=== PATIENT | female | born 1940 | race Caucasian/White ===

== ENCOUNTER 2016-10-16 09:28 | Emergency (ER) | payer MEDICARE, OTHER ==
[2016-10-16] MEDS ORDERED: DEXAMETHASONE 10 MG/ML VIAL PO STA (11:55)
[2016-10-16] MEDS ORDERED: cefTRIAXone 1 GM VIAL IM STA (11:55)
[2016-10-16] MEDS ORDERED: IPRATROPIUM/ALBUTEROL 3 ML NEB INH STA (11:55)
[2016-10-16] MEDS ORDERED: IPRATROPIUM/ALBUTEROL 3 ML NEB INH ONE (12:08)
[2016-10-16] MEDS ORDERED: LIDOCAINE-MPF 1% 5 ML VIAL ONE (12:17)
[2016-10-16] MEDS ORDERED: cefTRIAXone 1 GM VIAL ONE (12:17)
[2016-10-16] MEDS ORDERED: DEXAMETHASONE 10 MG/ML VIAL ONE (12:18)
== END 2016-10-16 13:33 | disposition home or self-care (01) ==
DX: T17.590A Other foreign object in bronchus causing asphyxiation, initial encounter (principal); H66.001 Acute suppurative otitis media without spontaneous rupture of ear drum, right ear; G12.21 Amyotrophic lateral sclerosis; E11.42 Type 2 diabetes mellitus with diabetic polyneuropathy
CPT/HCPCS: 71020; 87275; 87276; 94640; 96372; 99283; 99284; J7620

== ENCOUNTER 2016-12-05 10:25 | Outpatient (CLI) | payer MEDICARE, OTHER | END 2016-12-05 10:26 | disposition home or self-care (01) | DX: R39.15 Urgency of urination (principal) ==

== ENCOUNTER 2016-12-12 10:02 | Outpatient (CLI) | payer MEDICARE, OTHER | END 2016-12-12 10:03 | disposition home or self-care (01) | DX: R39.15 Urgency of urination (principal) ==

== ENCOUNTER 2017-01-11 10:35 | Observation (INO) | payer MEDICARE, OTHER ==
[2017-01-11] MEDS ORDERED: IOPAMIDOL-300 100 ML VIAL IVP ONE (15:52)
[2017-01-11] MEDS ORDERED: SODIUM CHLORIDE FLUSH 0.9% 10 ML SYRINGE IVP PRN (19:55)
[2017-01-11] MEDS: SODIUM CHLORIDE FLUSH 0.9% 10 ML SYRINGE IVP SCH (21:22)
[2017-01-11] MEDS ORDERED: ALPRAZolam 0.25 MG TABLET PO PRN (22:38)
[2017-01-12] MEDS: SODIUM CHLORIDE FLUSH 0.9% 10 ML SYRINGE IVP SCH (06:46)
[2017-01-12] MEDS ORDERED: ACETAMINOPHEN 325 MG TABLET PO PRN (07:42)
[2017-01-12] MEDS ORDERED: POLYETHYLENE GLYCOL 3350 17 GM PACKET PO SCH (09:00)
[2017-01-12] MEDS ORDERED: ALPRAZOLAM 0.5 MG PO SCH (09:00)
[2017-01-12] MEDS ORDERED: CITALOPRAM 10 MG TABLET PO SCH ×2 (09:00→12:00)
[2017-01-12] MEDS ORDERED: ALPRAZolam 0.25 MG TABLET PO SCH (09:00)
[2017-01-12] MEDS ORDERED: OXYBUTYNIN 5MG TABLET PO PRN (11:16)
[2017-01-12] MEDS ORDERED: PANTOPRAZOLE 40 MG TABLET PO SCH (12:00)
[2017-01-12] MEDS ORDERED: ESTRADIOL 1 MG TABLET PO SCH (12:00)
[2017-01-12] MEDS ORDERED: PRAMIPEXOLE 0.25 MG TABLET PO SCH (20:00)
== END 2017-01-12 11:06 | disposition home or self-care (01) ==
DX: R09.02 Hypoxemia (principal); G12.21 Amyotrophic lateral sclerosis; E11.42 Type 2 diabetes mellitus with diabetic polyneuropathy; J98.4 Other disorders of lung; Z99.81 Dependence on supplemental oxygen; R60.0 Localized edema; R03.0 Elevated blood-pressure reading, without diagnosis of hypertension; K21.9 Gastro-esophageal reflux disease without esophagitis; F31.9 Bipolar disorder, unspecified; F41.0 Panic disorder [episodic paroxysmal anxiety]; Z87.01 Personal history of pneumonia (recurrent)
CPT/HCPCS: 36415; 71020; 71275; 80048; 84484; 85025; 85379; 99284; A9270; G0378; Q9967

== ENCOUNTER 2017-01-27 20:20 | Outpatient (CLI) | payer MEDICARE, OTHER | END 2017-01-27 20:21 | disposition critical access hospital (66) | DX: R10.9 Unspecified abdominal pain (principal); R55 Syncope and collapse | CPT/HCPCS: A0425; A0427 ==

== ENCOUNTER 2017-01-27 20:32 | Emergency (ER) | payer MEDICARE, OTHER ==
--- NOTE | 2017-01-27 20:38 | ED Physician Documentation ---
History of Present Illness - Stated complaint Stated Complaint: ALS/NEAR SYNCOPE - Chief complaint Chief Complaint: General - History obtained from History obtained from: Patient - History of Present Illness Timing: Today Pain level max: 0 Pain level now: 0 Improved by: no ameliorating factors Worsened by: no exacerbating factors - Additonal information Additional information: patient feels she has been constipated x few days, took laxative 4 days ago without results. She took another laxative tonight and subsequently went to use toilet for BM. She had no output, and quickly experienced generalized abdominal cramping, nausea (no vomiting), lightheadedness, diaphoresis, cold chills, " felt like I was going to pass out" (per patient). She has gradually but completely returned to baseline. She also has left knee pain x 3 days, sudden onset when family was adjusting her in her bed (she has ALS). Review of Systems Constitutional: reports: Chills, Sweats. denies: Fever Cardiac: reports: Reviewed and negative Respiratory: reports: Reviewed and negative GI: reports: Nausea, Constipation. denies: Abdominal Pain, Vomiting, Diarrhea : denies: Dysuria, Frequency Neurologic: reports: Generalized weakness (baseline), Near syncope. denies: Focal weakness, Numbness, Headache PD PAST MEDICAL HISTORY - Past Medical History Cardiovascular: Other Respiratory: Pneumonia Neuro: Peripheral neuropathy Endocrine/Autoimmune: Type 2 diabetes GI: GERD : Kidney stones HEENT: None Psych: Depression, Anxiety Musculoskeletal: Osteoarthritis, Chronic back pain Derm: None - Past Surgical History General: Colonoscopy Ortho: Other /TELLERS SUPERVISOR: Hysterectomy HEENT: Tonsil/Adenoidectomy - Present Medications Home Medications: Ambulatory Orders Medication Instructions Recorded Confirmed Citalopram [CeleXA] 40 mg PO DAILY 10/31/14 01/27/17 Alprazolam [Xanax] 0.5 mg PO DAILY PRN 10/16/16 01/11/17 Estradiol 0.5 mg PO DAILY 01/12/17 01/27/17 Omeprazole 20 mg PO QDAC 01/12/17 01/27/17 Oxybutynin [Ditropan] 5 mg PO TID PRN 01/12/17 01/27/17 Pramipexole Di-HCl [Mirapex] 0.25 mg PO QPM@199901/12/17 01/27/17 Glycopyrrolate 01/27/17 - Allergies Allergies/Adverse Reactions: Allergies Allergy/AdvReac Type Severity Reaction Status Date / Time propoxyphene HCl * Allergy Severe Upper lip Verified 01/11/17 10:58 [From Darvon] swelling meperidine HCl * AdvReac Severe Nausea Verified 01/11/17 10:58 [From Demerol] morphine AdvReac Severe Nausea Verified 01/11/17 10:58 Sulfa (Sulfonamide AdvReac Intermediate Rash Verified 01/11/17 10:58 Antibiotics) - Social History Does the pt smoke?: No Smoking Status: Former smoker PD ED PE NORMAL - Vitals Vital signs reviewed: Yes - General General: Alert and oriented X 3, No acute distress, Well developed/nourished - HEENT HEENT: PERRL, EOMI, Moist mucous membranes, Pharynx benign - Neck Neck: Supple, no meningeal sign - Cardiac Cardiac: RRR (occasional extra beats), No murmur - Respiratory Respiratory: No respiratory distress, Clear bilaterally - Abdomen Abdomen: Normal bowel sounds, Soft, Non tender - Derm Derm: Normal color, Warm and dry - Extremities Extremities: No edema Results - Vitals Vitals: Vital Signs - 24 hr 01/27/17 01/27/17 01/27/17 20:36 21:57 22:45 Temperature 36.9 C 36.6 C Heart Rate 79 78 79 Respiratory 18 18 Rate Blood Pressure 152/68 H 140/80 H 133/60 H O2 Saturation 98 98 97 Oxygen O2 Source Room air - EKG (time done) No standard instances Rate: Rate (enter#) (74) Rhythm: NSR [place]: LAD Intervals: Normal [place] QRS: Normal Ischemia: Q waves (II, III, aVF, V2-V5) - Labs Labs: Laboratory Tests 01/27/17 01/27/17 01/27/17 21:17 21:17 21:17 WBC 10.8 RBC 4.33 Hgb 13.3 Hct 39.7 MCV 91.6 MCH 30.7 MCHC 33.5 RDW 13.0 Plt Count 277 MPV 10.5 Neut # 8.8 H Lymph # 1.2 L [place] # 0.6 Eos # 0.2 Baso # 0.0 Absolute Nucleated RBC 0.00 Nucleated RBCs 0.0 Sodium 139 Potassium 3.4 L Chloride 101 Carbon Dioxide 28 Anion Gap 10.0 BUN 18 Creatinine 0.4 Estimated GFR (MDRD) 155 Glucose 134 H Calcium 9.4 Total Bilirubin 0.7 AST 19 ALT 16 Alkaline Phosphatase 45 Troponin I < 0.04 Total Protein 6.7 Albumin 4.1 Globulin 2.6 Albumin/Globulin Ratio 1.6 Lipase 41 - Rads (name of study) right knee xrays Radiology: Prelim report reviewed, See rad report PD MEDICAL DECISION MAKING - ED course Complexity details: reviewed results, re-evaluated patient, considered differential, d/w patient Departure - Departure Disposition: 01 Home, Self Care Clinical Impression: ALS (amyotrophic lateral sclerosis), Near syncope Condition: Good Instructions: ED Near Syncope Unkn Follow-Up: Bari Stevenson DO [Primary Care Provider] - Discharge Date/Time: 01/27/17 22:45
[2017-01-27] MEDS ORDERED: SODIUM CHLORIDE 0.9% 1,000 ML IV STA (21:00)
[2017-01-27 21:31] LABS: BASOPHILS % (AUTO) 0.4 %; EOSINOPHILS # (AUTO) 0.2 10^3/uL (0.0-0.7); EOSINOPHILS % (AUTO) 1.5 %; HCT - HEMATOCRIT 39.7 % (37.0-47.0); HGB - HEMOGLOBIN 13.3 g/dL (12.0-16.0); LYMPHOCYTES # (AUTO) 1.2 10^3/uL (1.5-3.5); LYMPHOCYTES % (AUTO) 11.4 %; MEAN CORPUSCULAR HEMOGLOBIN 30.7 pg (27.0-31.0); MEAN CORPUSCULAR HGB CONC 33.5 g/dL (32.0-36.0); MEAN CORPUSCULAR VOLUME 91.6 fL (81.0-99.0); MEAN PLATELET VOLUME 10.5 fL (7.9-10.8); MONOCYTES # (AUTO) 0.6 10^3/uL (0.0-1.0); MONOCYTES % (AUTO) 5.2 %; NEUTROPHILS # (AUTO) 8.8 10^3/uL (1.5-6.6); NEUTROPHILS % (AUTO) 81.5 %; RED BLOOD COUNT 4.33 10^6/uL (4.20-5.40); UNCORRECTED WHITE BLOOD COUNT 10.8 x10^3/uL; WHITE BLOOD COUNT 10.8 x10^3/uL (4.8-10.8)
[2017-01-27 21:37] LABS: ALBUMIN/GLOBULIN RATIO 1.6 (1.0-2.2); BILIRUBIN,TOTAL 0.7 mg/dL (0.2-1.0); CALCIUM 9.4 mg/dL (8.5-10.3); CREATININE 0.4 mg/dL (0.4-1.0); POTASSIUM 3.4 mmol/L (3.5-5.0); TOTAL PROTEIN 6.7 g/dL (6.7-8.2)
--- NOTE | 2017-01-27 21:37 | XRAY Preliminary Report ---
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 [facility] SITE ID: [id number]
--- NOTE | 2017-01-27 21:40 | XRAY Report ---
EXAM: RIGHT KNEE RADIOGRAPHY EXAM DATE: 01/27/2017 09:31 PM. CLINICAL HISTORY: Twisting injury, pain. COMPARISON: None. TECHNIQUE: 3 views. FINDINGS: Bones: Normal. No fractures or bone lesions. Joints: Joint space and alignment appears preserved. There is chondrocalcinosis within the knee. Ther e is no joint effusion. Soft Tissues: Normal. No soft tissue swelling. 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 [facility] Referring Provider Line: [phone] SITE ID: [id number]
[2017-01-27 22:54] VITALS: BP 133/60
--- NOTE | 2017-03-13 06:45 | ED Physician Documentation ---
ED Addendum - Addendum Addendum: 03/13/17 06:44 HPI should read "She also has right knee pain x 3 days", not left knee pain
== END 2017-01-27 22:45 | disposition home or self-care (01) ==
LOC: EDUNIT# → SUPCPDRO 20:32 → ED 20:32
DX: G12.21 Amyotrophic lateral sclerosis (principal); R55 Syncope and collapse; M25.561 Pain in right knee; E11.42 Type 2 diabetes mellitus with diabetic polyneuropathy; K21.9 Gastro-esophageal reflux disease without esophagitis; Z87.891 Personal history of nicotine dependence
CPT/HCPCS: 36415; 80053; 83690; 84484; 85025; 93005; 93010; 99284

== ENCOUNTER 2017-02-21 21:33 | Outpatient (CLI) | payer MEDICARE, OTHER | END 2017-02-21 21:34 | disposition critical access hospital (66) | LOC: EMS 21:33 | PROVIDERS: ATTEND Surgery | DX: R11.2 Nausea with vomiting, unspecified (principal); R53.1 Weakness | CPT/HCPCS: A0425; A0427 ==

== ENCOUNTER 2017-02-21 21:42 | Emergency (ER) | payer MEDICARE, OTHER ==
[2017-02-21] MEDS ORDERED: ONDANSETRON 4 MG/2 ML VIAL IVP STA (22:16)
[2017-02-21] MEDS ORDERED: SODIUM CHLORIDE 0.9% 1,000 ML IV ONE (22:16)
[2017-02-21] MEDS ORDERED: DIATR MEGLU/DIATRIZOATE SODIUM 120 ML BOTTLE PO ONE (22:18)
[2017-02-21] MEDS ORDERED: ONDANSETRON 4 MG/2 ML VIAL ONE (22:30)
[2017-02-21 22:44] LABS: BASOPHILS # (AUTO) 0.1 10^3/uL (0.0-0.1); BASOPHILS % (AUTO) 0.6 %; EOSINOPHILS # (AUTO) 0.1 10^3/uL (0.0-0.7); EOSINOPHILS % (AUTO) 0.7 %; HCT - HEMATOCRIT 41.5 % (37.0-47.0); HGB - HEMOGLOBIN 13.7 g/dL (12.0-16.0); LYMPHOCYTES # (AUTO) 1.3 10^3/uL (1.5-3.5); LYMPHOCYTES % (AUTO) 14.5 %; MEAN CORPUSCULAR HEMOGLOBIN 30.3 pg (27.0-31.0); MEAN CORPUSCULAR HGB CONC 33.1 g/dL (32.0-36.0); MEAN CORPUSCULAR VOLUME 91.6 fL (81.0-99.0); MEAN PLATELET VOLUME 10.4 fL (7.9-10.8); MONOCYTES # (AUTO) 0.4 10^3/uL (0.0-1.0); MONOCYTES % (AUTO) 4.4 %; NEUTROPHILS # (AUTO) 7.2 10^3/uL (1.5-6.6); NEUTROPHILS % (AUTO) 79.8 %; RED BLOOD COUNT 4.53 10^6/uL (4.20-5.40)
[2017-02-21 22:58] LABS: ALBUMIN/GLOBULIN RATIO 1.6 (1.0-2.2); BILIRUBIN,TOTAL 1.7 mg/dL (0.2-1.0); CREATININE 0.4 mg/dL (0.4-1.0); MAGNESIUM 1.6 mg/dL (1.7-2.8); PHOSPHORUS 4.2 mg/dL (2.5-4.6); POTASSIUM 3.8 mmol/L (3.5-5.0); TOTAL PROTEIN 7.2 g/dL (6.7-8.2)
[2017-02-22] MEDS ORDERED: PROMETHAZINE 12.5 MG SUPP PR STA ×2 (00:50→03:13)
--- NOTE | 2017-02-22 00:58 | ED Physician Documentation ---
History of Present Illness - Stated complaint Stated Complaint: N/V - Chief complaint Chief Complaint: Abd Pain - History obtained from History obtained from: Patient, Family - History of Present Illness Timing: Chronic - Additonal information Additional information: Patient is a 76 year old female with a history of als who is presenting to the emergency department for abdominal pain, nausea, weakness, constipaion. According to patient and family the symptoms of her als have been progressing. patient had a peg tube placed on and was discharged from the hospital two days later. Family and patient report that she has not felt well the entire time. she has not had a substantial bowel movement and patient has been nauseated. Patient has not been able to tolerate her tube feedings, and has been complaining of generalized weakness. Review of Systems Constitutional: denies: Fever, Chills Eyes: denies: Loss of vision, Photophobia Ears: denies: Ear pain, Drainage/discharge Nose: denies: Rhinorrhea / runny nose, Congestion Throat: denies: Dental pain / toothache, Oral lesions / sores Cardiac: denies: Chest pain / pressure, Palpitations Respiratory: reports: Dyspnea, Cough GI: reports: Abdominal Pain, Nausea, Constipation. denies: Vomiting : denies: Dysuria, Frequency, Unable to Void Skin: denies: Rash, Lesions Musculoskeletal: denies: Neck pain, Back pain, Extremity pain Neurologic: reports: Generalized weakness. denies: Focal weakness, Numbness Psychiatric: denies: Depressed, Suicidal PD PAST MEDICAL HISTORY - Past Medical History Cardiovascular: Other Respiratory: Pneumonia Neuro: Peripheral neuropathy Endocrine/Autoimmune: Type 2 diabetes GI: GERD : Kidney stones HEENT: None Psych: Depression, Anxiety Musculoskeletal: Osteoarthritis, Chronic back pain Derm: None Other Past Medical History: ALS. Feeding tube - Past Surgical History Past Surgical History: Yes General: Colonoscopy Ortho: Other /CASE MANAGEMENT ASSISTANT: Hysterectomy HEENT: Tonsil/Adenoidectomy - Present Medications Home Medications: Ambulatory Orders Medication Instructions Recorded Confirmed Citalopram [CeleXA] 40 mg PO DAILY 10/31/14 01/27/17 Alprazolam [Xanax] 0.5 mg PO DAILY PRN 10/16/16 01/11/17 Estradiol 0.5 mg PO DAILY 01/12/17 01/27/17 Omeprazole 20 mg PO QDAC 01/12/17 01/27/17 Oxybutynin [Ditropan] 5 mg PO TID PRN 01/12/17 01/27/17 Pramipexole Di-HCl [Mirapex] 0.25 mg PO QPM@199901/12/17 01/27/17 Glycopyrrolate 01/27/17 Ondansetron Odt [Zofran] 4 mg TL Q6H PRN #14 tablet 02/22/17 Promethazine HCl [Phenergan] 25 mg RC Q8H PRN #15 supp.rect 02/22/17 - Allergies Allergies/Adverse Reactions: Allergies Allergy/AdvReac Type Severity Reaction Status Date / Time propoxyphene HCl * Allergy Severe Upper lip Verified 01/11/17 10:58 [From Darvon] swelling meperidine HCl * AdvReac Severe Nausea Verified 01/11/17 10:58 [From Demerol] morphine AdvReac Severe Nausea Verified 01/11/17 10:58 Sulfa (Sulfonamide AdvReac Intermediate Rash Verified 01/11/17 10:58 Antibiotics) - Social History Does the pt smoke?: No Smoking Status: Former smoker Does the pt drink ETOH?: No Does the pt have substance abuse?: No - Immunizations Immunizations are current?: No - POLST Patient has POLST: Yes PD ED PE NORMAL - Vitals Vital signs reviewed: Yes - General General: Alert and oriented X 3 - HEENT HEENT: Atraumatic, PERRL - Neck Neck: Supple, no meningeal sign - Cardiac Cardiac: No murmur PD ED PE EXPANDED - HEENT HEENT: Dry mucous membranes - Respiratory Respiratory: Other (tachypneanic, shallow breath) - Abdomen Abdomen: Other (feeding tube in place, no sign of acute infection) - Derm Derm: Other (poor turgor) Results - Vitals Vitals: Vital Signs - 24 hr 02/21/17 02/21/17 02/22/17 21:46 23:27 00:06 Temperature 36.4 C L Heart Rate 104 H 94 97 Respiratory 18 20 18 Rate Blood Pressure 170/96 H 168/88 H 154/94 H O2 Saturation 99 95 96 02/22/17 02/22/17 02/22/17 01:09 02:21 03:20 Temperature 36.5 C 37 C Heart Rate 90 91 92 Respiratory 17 16 16 Rate Blood Pressure 144/81 H 153/67 H 143/79 H O2 Saturation 95 97 96 Oxygen O2 Source Room air - EKG (time done) 2241 Rate: Rate (enter#) (92) Rhythm: NSR [place]: LAD QRS: LVH Compare to prior EKG: Unchanged from prior EKG - Labs Labs: Laboratory Tests 02/21/17 02/21/17 02/21/17 22:35 22:35 22:35 WBC 9.0 RBC 4.53 Hgb 13.7 Hct 41.5 MCV 91.6 MCH 30.3 MCHC 33.1 RDW 13.0 Plt Count 279 MPV 10.4 Neut # 7.2 H Lymph # 1.3 L [place] # 0.4 Eos # 0.1 Baso # 0.1 Absolute Nucleated RBC 0.00 Nucleated RBCs 0.0 Sodium 135 Potassium 3.8 Chloride 93 L Carbon Dioxide 27 Anion Gap 15.0 H BUN 11 Creatinine 0.4 Estimated GFR (MDRD) 155 Glucose 131 H Calcium 10.0 Phosphorus 4.2 Magnesium 1.6 L Total Bilirubin 1.7 H AST 26 ALT 20 Alkaline Phosphatase 54 Troponin I < 0.04 Total Protein 7.2 Albumin 4.4 Globulin 2.8 Albumin/Globulin Ratio 1.6 Lipase 41 - Rads (name of study) ct abdomen and pelvis Radiology: Final report received (multiple stones in renal pelvis, no acute abdominal abnormalities) PD MEDICAL DECISION MAKING - ED course Complexity details: reviewed old records, reviewed results, re-evaluated patient , considered differential, d/w patient, d/w family ED course: Patient was seen and examined at bedside. IV access was gained and labs were drawn. Urine was collected. Patient was treated with zofran and fluids. oral contrast was ordered for the patient which was administered through the peg tube. Patient complained of more nausea and was treated with phenegran 12.5mg IV. Patietn had good relief with the phenegran. Patient was sent for imaging. When patient returned from imaging the results were reviewed. there were mulitple stones but no signs of hydro, and no signs of acute abdominal pathology. Patient and family were made aware of the findings and plan. Prescriptions were written, and patient had follow up wiin the next two days. patient required no further work up and was stable for discharge [facility] outpatient follow up. Departure - Departure Disposition: 01 Home, Self Care Clinical Impression: ALS (amyotrophic lateral sclerosis), Nausea, Renal stones Instructions: Abdominal Pain, ED Nausea Vomiting Follow-Up: Bari Stevenson DO [Primary Care Provider] - [facility] [Provider Group] Prescriptions: Promethazine HCl [Phenergan] 25 mg RC Q8H PRN #15 supp.rect PRN Reason: Nausea / Vomiting Ondansetron Odt [Zofran] 4 mg TL Q6H PRN #14 tablet PRN Reason: Nausea / Vomiting Comments: Your diagnostics today showed no sign of obstruction or intraabdominal pathology. There were a number of kidney stones in your right kidney and you will need to follow up with your pmd and urologist to eventually have them taken care of. You have been prescribed two different anti nausea medications, but this might be the progression of the disease. You should call your doctor today when you wake up to schedule a follow up appointment this week. I would recommend home health care/nursing. You may return to the emergency department at any time for new, worsening or uncontrollable symptoms. Discharge Date/Time: 02/22/17 03:40
[2017-02-22] MEDS ORDERED: PROMETHAZINE INJ 12.5 MG in SODIUM CHLORIDE 0.9% 50 ML IV STA (00:59)
[2017-02-22] MEDS ORDERED: PROMETHAZINE 25 MG/1 ML VIAL ONE (01:00)
[2017-02-22] MEDS ORDERED: IOPAMIDOL-300 50 ML VIAL PO ONE (01:28)
--- NOTE | 2017-02-22 02:51 | CT Preliminary Report ---
Exam: CT Abdomen/Pelvis W/O IMPRESSION: 1. There are 3 stones within the right kidney, largest measuring up to 6 mm. There is a lobulated 7 m m stone within the left renal pelvis. No hydronephrosis. 2. There is a calcified abnormalities in the right posterior lateral aspect of the bladder, measuring up to 3.5 cm. This may represent a bladder mass or bladder stone. This could be further assessed wit h cystoscopy. 3. No acute abdominal or pelvic abnormalities seen elsewhere. No bowel obstruction. [facility] SITE ID: [id number]
--- NOTE | 2017-02-22 03:00 | CT Report ---
EXAM: CT ABDOMEN AND PELVIS (CT KUB) EXAM DATE: 02/22/2017 01:45 AM. CLINICAL HISTORY: Vomiting, constipation, PEG tube placed 5 days prior. COMPARISONS: None. TECHNIQUE: Routine axial helical CT imaging was performed through the abdomen and pelvis without IV c ontrast. Enteric Contrast: Present. Reconstructions: Coronal and sagittal. In accordance with CT protocol optimization, one or more of the following dose reduction techniques w ere utilized for this exam: automated exposure control, adjustment of mA and/or KV based on patient s ize, or use of iterative reconstructive technique. FINDINGS: Right Kidney/Ureter: There are three nonobstructing stones within the right kidney, with the dominant cluster measuring up to 6 mm. No hydronephrosis or hydroureter. No definite renal mass within the co nfines of a non-contrast exam. Left Kidney/Ureter: Lobulated nonobstructing left renal pelvis stone noted measuring 7 mm. No hydrone phrosis or hydroureter. No definite renal mass within the confines of a non-contrast exam. Abdominal Solid Organs: Abdominal parenchymal organs are without significant abnormality within the c onfines of a noncontrast exam. There is intermediate density material within the gallbladder, which m ay represent sludge and/or stones. Bowel: No evidence of bowel obstruction. Percutaneous gastrostomy tube is present in satisfactory pos ition. No surrounding fluid collection. Appendix: Appendix could not be identified with certainty. No secondary evidence of appendicitis. Lymph Nodes: No definite pathologic lymphadenopathy. Fluid: No significant ascites. Vasculature: Normal caliber aorta. Pelvis: Indistinct calcified abnormality within the right posterolateral aspect of the bladder, measu ring 3.5 cm in maximal diameter (image 23 series 5). Surgically absent uterus. Ovaries are not visual ized, possibly surgically absent as well. 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 Bones: No definite suspicious bony lesions demonstrated. However, bones are osteopenic. This reduces exam sensitivity and specificity for detection of subtle bony lesions and/or fractures. There is mi ld left convex scoliosis of the lumbar spine. Bone island noted within the right aspect of L3. Lower Chest: No significant lung base consolidation or effusion. Linear subsegmental opacities noted bilaterally, suggestive of atelectasis and/or scarring. IMPRESSION: 1. There are three stones within the right kidney, largest measuring up to 6 mm. There is a lobulated 7 mm stone within the left renal pelvis. No hydronephrosis. 2. There is a calcified abnormality within the right posterolateral aspect of the bladder, measuring up to 3.5 cm. This may represent a bladder mass or bladder stone. This could be further assessed with cystoscopy. 3. No acute abdominal or pelvic abnormality seen elsewhere. No bowel obstruction. [facility] Referring Provider Line: [phone] SITE ID: [id number]
[2017-02-22] MEDS ORDERED: PROMETHAZINE 12.5 MG SUPP PR ONE (03:15)
[2017-02-22 03:21] VITALS: BP 143/79
== END 2017-02-22 03:40 | disposition home or self-care (01) ==
LOC: EDUNIT# → ED 21:42
DX: G12.21 Amyotrophic lateral sclerosis (principal); N20.0 Calculus of kidney; Z87.442 Personal history of urinary calculi; R11.0 Nausea; E11.42 Type 2 diabetes mellitus with diabetic polyneuropathy; Z79.84 Long term (current) use of oral hypoglycemic drugs; K21.9 Gastro-esophageal reflux disease without esophagitis; M19.90 Unspecified osteoarthritis, unspecified site; Z87.891 Personal history of nicotine dependence
CPT/HCPCS: 36415; 74176; 80053; 83690; 83735; 84100; 84484; 85025; 93005; 93010; 96361; 96365; 96375; 99284; 99285; A9270; Q9963; Q9967